=== PATIENT | female | born 1995 | race Caucasian/White ===

== ENCOUNTER 2022-06-20 12:29 | Emergency (ER) | payer BC ==
[~2022-06-20] VITALS: Ht 180.3 cm; Wt 74.8 kg
--- NOTE | 2022-06-20 12:44 | NUR ---
BIBS C/O R BREAST AREA SURGICAL SITE DEHISCENCE, POSSIBLE INFECTION. PT IS AFEBRILE, VITALS ARE WITHIN NORMAL LIMITS. PT GIVEN GOWN AND WARM BLANKET. AWAITING MD WALLACE.
--- NOTE | 2022-06-20 13:56 | NUR ---
DR HENRY AT BEDSIDE
--- NOTE | 2022-06-20 15:59 | NUR ---
Patient discharged to home in stable condition. Written and verbal after care instructions given. Patient verbalizes understanding of instruction.
[2022-06-20 16:00] VITALS: BP 112/60
== END 2022-06-20 16:00 | disposition home or self-care (01) ==
LOC: ER 12:35
DX: Z48.810 Encounter for surgical aftercare following surgery on the sense organs (principal)
CPT/HCPCS: 76642-RT-TC